=== PATIENT | female | born 1990 | race African-American/Black ===

== ENCOUNTER 2021-06-29 21:09 | Emergency (ER) | payer MEDICAID ==
[~2021-06-29] VITALS: Ht 167.6 cm; Wt 65.8 kg
[2021-06-29 21:18] VITALS: BP 117/73
--- NOTE | 2021-06-29 21:24 | NUR ---
TO LOBBY FOLLOWING TRIAGE
--- NOTE | 2021-06-29 22:41 | NUR ---
PT AMBULATED TO BED 03
--- NOTE | 2021-06-29 23:26 | NUR ---
31 YO 4 MONTH PREGN F BIB SELF WITH C/C OF LEFT JAW PAIN 10/10 FROM BOTTOM TO SIDE OF FACE X2DAYS. PT HAS A HX OF TEETH PROBLEMS AND CAVITIES. PT STATES SHE IS AFRAIS TO GO TO DENTIST D/T PREVIOUS JAW SURGERIES. IS EXAMINING PT. STATES LEFT BOTTOM MOLARS SHOW DENTAL INFECTION, NO ABCESS. DENIES HX, RX AND ALLERGIES
--- NOTE | 2021-06-29 23:30 | NUR ---
PT STATED SHE HAS A RIDE HOME.
[2021-06-29] MEDS ORDERED: AMOX1TAB8 PO (23:43)
[2021-06-29] MEDS ORDERED: CHLO473L1 PO (23:43)
[2021-06-29] MEDS ORDERED: MORPHINE SULFATE 4 MG/ML SYR IM ONE (23:45)
[2021-06-29 23:47] VITALS: BP 131/73
[2021-06-30] MEDS ORDERED: BENZ14GE MM (00:05)
--- NOTE | 2021-06-30 00:06 | NUR ---
Patient discharged with v/s stable. Written and verbal after care instructions given and explained. Patient alert, oriented and verbalized understanding of instructions. Ambulatory with steady gait. All questions addressed prior to discharge. ID band removed. Patient advised to follow up with PMD. Rx of AUGMENTIN, ORA-GEL, AND CHLOROHEXIDINE given. Patient educated on indication of medication including possible reaction and side effects. Opportunity to ask questions provided and answered.
== END 2021-06-30 00:04 | disposition home or self-care (01) ==
LOC: MED 21:09
DX: O98.912 Unspecified maternal infectious and parasitic disease complicating pregnancy, second trimester (principal); K04.7 Periapical abscess without sinus; F17.210 Nicotine dependence, cigarettes, uncomplicated; Z79.899 Other long term (current) drug therapy; Z98.890 Other specified postprocedural states
CPT/HCPCS: 96372; 99283; J2270

== ENCOUNTER 2021-12-23 07:55 | Emergency (ER) | payer MEDICAID, OTHER ==
[~2021-12-23] VITALS: Ht 162.6 cm; Wt 65.8 kg
[~2021-12-23 07:55] MED LIST: AMOX1TAB8 PO; BENZ14GE MM; CHLO473L1 PO
--- NOTE | 2021-12-23 08:13 | NUR ---
Patient ambulated with steady gait to bed 2.
[2021-12-23 08:15] VITALS: BP 141/91
--- NOTE | 2021-12-23 08:23 | NUR ---
PT C/O RIGHT SIDED FACIAL SWELLING WITH TOOTH PAIN SINCE THIS AM
[2021-12-23] MEDS ORDERED: NAPR-1704 PO (09:21)
[2021-12-23] MEDS ORDERED: ACET-8386 PO (09:21)
[2021-12-23] MEDS ORDERED: AMOX500C25 PO (09:21)
[2021-12-23 09:25] VITALS: BP 111/65
--- NOTE | 2021-12-23 09:25 | NUR ---
Patient discharged with v/s stable. Written and verbal after care instructions given and explained. Patient alert, oriented and verbalized understanding of instructions. Ambulatory with steady gait. All questions addressed prior to discharge. ID band removed. Patient advised to follow up with PMD. Rx of AMOXICILLIN, NORCO, NAPROXEN given. Patient educated on indication of medication including possible reaction and side effects. Opportunity to ask questions provided and answered.
== END 2021-12-23 09:25 | disposition home or self-care (01) ==
LOC: MED 07:55
DX: K02.9 Dental caries, unspecified (principal); K03.2 Erosion of teeth; L03.211 Cellulitis of face; F17.200 Nicotine dependence, unspecified, uncomplicated; Z72.89 Other problems related to lifestyle
CPT/HCPCS: 99283

== ENCOUNTER 2022-05-15 21:33 | Emergency (ER) | payer OTHER ==
[~2022-05-15] VITALS: Ht 167.6 cm; Wt 58.1 kg
[~2022-05-15 21:33] MED LIST changes: +ACET-8905 PO; +AMOX500C25 PO; +NAPR-1704 PO
[2022-05-15 21:48] VITALS: BP 147/91
--- NOTE | 2022-05-15 22:58 | NUR ---
Urine collected sent to lab
--- NOTE | 2022-05-15 23:00 | NUR ---
URINE SENT TO LAB.
[2022-05-15 23:49] LABS: APPEARANCE,URINE CLEAR (CLEAR); BILIRUBIN,URINE NEGATIVE (NEGATIVE); BLOOD, URINE 3+ (NEGATIVE); COLOR,URINE YELLOW (YELLOW); LEUKOCYTE ESTERASE ,URINE NEGATIVE (NEGATIVE); NITRITE, URINE NEGATIVE (NEGATIVE); UGLUCOSE NEGATIVE (NEGATIVE)
[2022-05-16 00:02] LABS: BASOPHILS # (AUTO) 0.1 K/uL (0.00-0.22); EOSINOPHILS # (AUTO) 0.1 K/uL (0-0.4); EOSINOPHILS % (AUTO) 1.6 % (0.0-4.0); HEMATOCRIT 34.7 % (36-48); HEMOGLOBIN 10.9 g/dL (12.0-16.0); LYMPHOCYTES # (AUTO) 3.2 K/uL (2.5-16.5); LYMPHOCYTES % (AUTO) 34.8 % (20.5-51.1); MEAN CORPUSCULAR HEMOGLOBIN 25 pg (27-31); MEAN CORPUSCULAR HGB CONC 32 g/dL (33-37); MEAN CORPUSCULAR VOLUME 78.2 fL (80-94); MONOCYTES # (AUTO) 0.5 K/uL (0.8-1.0); MONOCYTES % (AUTO) 5.7 % (1.7-9.3); NEUTROPHILS # (AUTO) 5.2 K/uL (1.8-7.7); NEUTROPHILS % (AUTO) 56.9 % (42.2-75.2); PLATELET COUNT (AUTO) 278 K/uL (140-450); RED BLOOD CELL COUNT(AUTO) 4.43 MIL/uL (4.20-5.40); RED CELL DISTRIBUTION WIDTH 16.2 % (11.6-13.7); WHITE BLOOD COUNT (AUTO) 9.1 K/uL (4.8-10.8)
[2022-05-16] MEDS ORDERED: KETOROLAC 60 MG/2 ML VIAL IM ONE (00:20)
[2022-05-16 00:22] LABS: RBC,URINE 20-50 /HPF (0-5); WBC,URINE 0 /HPF (0-5)
[2022-05-16 00:55] LABS: ALBUMIN 4.2 g/dL (3.4-5.0); ANION GAP 14.2 (8-16); CARBON DIOXIDE 24.5 mmol/L (21-32); CHLORIDE 104 mmol/L (98-107); CREATININE 0.9 mg/dL (0.6-1.3); GFR ARICAN-AMERICAN 93 mL/min (>90); GLUCOSE 98 mg/dL (74-106); POTASSIUM 3.7 mmol/L (3.5-5.1); SODIUM SERUM 139 mmol/L (136-145); TOTAL BILIRUBIN 0.4 mg/dL (0.0-1.0); UREA NITROGEN, BLOOD 13 mg/dL (7-18)
[2022-05-16] MEDS ORDERED: NAPR-54 PO (01:08)
[2022-05-16 01:20] VITALS: BP 122/82
--- NOTE | 2022-05-16 01:20 | NUR ---
PT DC'D [facility]EN BED 12, NO S/S OF DISTRESS. PT GIVEN DC PAPERWORK AND INFORMED WHERE TO GO TO [facility] HER MEDICATION. PT AMBULATED WITH A STEADY GAIT.
== END 2022-05-16 01:20 | disposition home or self-care (01) ==
LOC: MED 21:33
DX: G44.209 Tension-type headache, unspecified, not intractable (principal); F17.210 Nicotine dependence, cigarettes, uncomplicated; Z71.6 Tobacco abuse counseling; Z79.899 Other long term (current) drug therapy
CPT/HCPCS: 36415; 80053; 81001; 84484; 85025; 96372; 99284; J1885

== ENCOUNTER 2022-07-09 22:06 | Emergency (ER) | payer OTHER ==
[~2022-07-09] VITALS: Ht 165.1 cm; Wt 68.9 kg
[~2022-07-09 22:06] MED LIST changes: +NAPR-54 PO
[2022-07-09 22:23] VITALS: BP 131/92
--- NOTE | 2022-07-09 22:38 | NUR ---
BARRY URBAN examining patient.
[2022-07-09] MEDS ORDERED: KETOROLAC 30 MG/ML VIAL IM ONE (22:45)
--- NOTE | 2022-07-09 22:49 | NUR ---
PT TAKEN TO ER BED 11
--- NOTE | 2022-07-09 23:00 | NUR ---
C/O cough x 2 weeks. Patient reported, had cough for 2 weeks, and back and chest pain. PMHx: DENIES
[2022-07-09 23:30] LABS: BILIRUBIN,URINE NEGATIVE (NEGATIVE); BLOOD, URINE NEGATIVE (NEGATIVE); COLOR,URINE YELLOW (YELLOW); LEUKOCYTE ESTERASE ,URINE NEGATIVE (NEGATIVE); NITRITE, URINE NEGATIVE (NEGATIVE); UGLUCOSE NEGATIVE (NEGATIVE)
[2022-07-09 23:33] LABS: APPEARANCE,URINE HAZY (CLEAR)
[2022-07-09 23:40] LABS: RBC,URINE NONE SEEN /HPF (0-5); WBC,URINE 0-5 /HPF (0-5)
--- NOTE | 2022-07-09 23:50 | NUR ---
BARRY URBAN explained results and treatment plans.
[2022-07-09] MEDS ORDERED: BENZ200C4 PO (23:53)
[2022-07-09] MEDS ORDERED: NAPR-54 PO (23:53)
[2022-07-09] MEDS ORDERED: SUD30 PO (23:55)
[2022-07-10 00:07] VITALS: BP 131/92
--- NOTE | 2022-07-10 00:17 | NUR ---
Patient discharged with v/s stable. Written and verbal after care instructions given and explained. Patient alert, oriented and verbalized understanding of instructions. Ambulatory with steady gait. All questions addressed prior to discharge. ID band removed. Patient advised to follow up with PMD. Rx of BENZONATATE SUFADATED AND NAPROXEN given. Patient educated on indication of medication including possible reaction and side effects. Opportunity to ask questions provided and answered.PT LEFT WITH HER BELONGINGS.
== END 2022-07-10 00:07 | disposition home or self-care (01) ==
LOC: MED 22:06
DX: J20.9 Acute bronchitis, unspecified (principal); M67.40 Ganglion, unspecified site; M94.0 Chondrocostal junction syndrome [Tietze]; Z79.899 Other long term (current) drug therapy
CPT/HCPCS: 71046; 81001; 81025; 87086; 96372; 99284; J1885

== ENCOUNTER 2023-03-07 17:03 | Emergency (ER) | payer OTHER ==
[~2023-03-07] VITALS: Ht 157.5 cm; Wt 59.0 kg
[~2023-03-07 17:03] MED LIST changes: +BENZ200C4 PO; +SUD30 PO
[2023-03-07 17:34] VITALS: BP 131/83; PULSE 89; RESP 18; TEMP 98; O2SAT 98
[2023-03-07] MEDS ORDERED: IBUPROFEN 600 MG TAB PO ONE (18:50)
[2023-03-07] MEDS ORDERED: TRAM-748 PO (18:53)
[2023-03-07] MEDS ORDERED: NAPR-1704 PO (18:53)
[2023-03-07] MEDS ORDERED: PENI500T20 PO (18:53)
== END 2023-03-07 19:00 | disposition home or self-care (01) ==
LOC: MED 17:03
DX: K08.89 Other specified disorders of teeth and supporting structures (principal); F17.200 Nicotine dependence, unspecified, uncomplicated; Z79.899 Other long term (current) drug therapy; Z71.6 Tobacco abuse counseling
CPT/HCPCS: 99283